=== PATIENT | male | born 1975 | race Hispanic/Latino ===

== ENCOUNTER 2022-02-10 11:14 | Emergency (ER) | payer MEDICAID, SELFPAY ==
[~2022-02-10 11:14] MED LIST: Iopamidol-370 76% 500 ML 1 ML ONE
[2022-02-10 11:35] LABS: #Basophils 0.1 thou/uL (0.0-0.2); #Eosinphils 0.2 thou/uL (0.0-0.7); #Lymphocytes 2.3 thou/uL (1.20-3.40); #Monocytes 0.4 thou/uL (0.11-0.59); #Neutrophils 2.8 thou/uL (1.40-6.50); %Basophils 1.1 % (0.0-1.0); %Eosinophils 2.9 % (0.0-10.0); %Lymphocytes 40.5 % (21.0-51.0); %Monocytes 6.8 % (0.0-10.0); %Neutrophils 48.7 % (42.0-75.0); Mean Corpuscular HGB CONC 35.2 g/dL (32.0-36.0); Mean Corpuscular Hemoglobin 34.3 pg (27.0-31.0); Mean Corpuscular Volume 97.4 fL (78.0-98.0); Mean Platelet Volume 6.1 fL (7.4-10.4); Platelet Count 255 thou/uL (130-400); RBC Distribution Width 11.4 % (11.5-14.5); Red Blood Cell (RBC) Count 4.67 mill/uL (4.70-6.10); White Blood Cell (WBC) Count 5.7 thou/uL (4.8-10.8)
[2022-02-10 11:49] LABS: ALT (SGPT) 40 U/L (8-55); AST (SGOT) 46 U/L (5-34); Albumin 4.5 g/dL (3.5-5.0); Alkaline Phosphatase 106 U/L (40-110); Anion Gap 17 mmol/L (10-20); BUN (Urea Nitrogen) 8 mg/dL (8.9-20.6); Bilirubin, Total 0.4 mg/dL (0.2-1.2); Calc. Creatinine Clearance 0 mL/min (70-130); Calcium 9.5 mg/dL (7.8-10.44); Carbon Dioxide 22 mmol/L (22-29); Chloride 103 mmol/L (98-107); Globulin 3.8 g/dL (2.4-3.5); Glucose 119 mg/dL (70-105); Potassium 3.7 mmol/L (3.5-5.1); Protein, Total 8.3 g/dL (6.0-8.3); Sodium 138 mmol/L (136-145)
[2022-02-10] MEDS ORDERED: Morphine 4 MG/ML VIAL ONE (11:49)
[2022-02-10] MEDS ORDERED: Ketorolac Tromethamine 30 MG/ML VIAL ONE (11:49)
== END 2022-02-10 13:40 | disposition home or self-care (01) ==
LOC: ERS 11:14
DX: S22.41XA Multiple fractures of ribs, right side, initial encounter for closed fracture (principal); I10 Essential (primary) hypertension; E78.5 Hyperlipidemia, unspecified; F17.200 Nicotine dependence, unspecified, uncomplicated; W23.0XXA Caught, crushed, jammed, or pinched between moving objects, initial encounter
CPT/HCPCS: 36415; 71045; 71260; 74177; 80053; 85025; 96374; G0390; J1885; J2270; Q9967